=== PATIENT | male | born 1955 ===

== ENCOUNTER 2016-12-28 09:53 | Emergency (ER) | payer BC ==
[2016-12-28 10:01] VITALS: BP 163/86
--- NOTE | 2016-12-28 10:38 | EDM.PDOC ---
ED HPI GENERAL MEDICAL PROBLEM - General Chief Complaint: Cardiovascular Problem Stated Complaint: SYNCOPE Time Seen by Provider: 12/28/16 10:28 Source of Information: Reports: Patient History Limitations: Reports: No Limitations - History of Present Illness INITIAL COMMENTS - FREE TEXT/NARRATIVE: 61-year-old male presents to the ED in the accompaniment of his . He states that since he awoke this morning he spelled like he's going to pass out. Feels like he's going to collapse. Not aware of any palpitations or pain in his chest. He gives a very vague symptoms to suggest very mild vertigo. He's better when he's laying down and at rest and not moving. He did not drive the car today because of the way he felt. His did not have to help him walk he did not feel that he lost his balance was offkilter. Takes no medications and has been taking no supplements or diet Kennedy products. No reason to be volume depleted with no history of diarrhea vomiting recently. Denies having a headache. He did have nausea for a short period of time but never did vomit. His only had a couple coffee so far this morning. Onset: Today Onset Date: 12/28/16 Onset Time: 06:30 Duration: Hour(s): Location: Reports: Generalized (Feeling of near-syncope or like he is going to pass out.) Quality: Reports: Same as Previous Episode (Perhaps a very mild similar episode occurred earlier this summer on his way to the [facility] while driving a motor vehicle but it lasted for a very short duration. At that time it was more swimming vision with a feeling of being off balance but it cleared spontaneously.) Severity: Moderate Improves with: Reports: Rest (And not moving.) Worsens with: Reports: Movement Context: Denies: Activity, Exercise (Particularly standing up.), Lifting, Sick Contact, Trauma, Other Associated Symptoms: Reports: No Other Symptoms, Nausea/Vomiting. 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: Other (see below) Other Treatments MEDIA MARKETING SPECIALIST: advil - Related Data Allergies Allergy/AdvReac Type Severity Reaction Status Date / Time No Known Allergies Allergy Verified 09/14/17 09:58 Home Meds: Home Meds Aspirin [Ecotrin] 975 mg PO ONCALL PRN 07/29/14 [History] Ciprofloxacin HCl [Cipro] 500 mg PO BID #14 tablet 07/30/14 [Rx] Meclizine [Antivert] 25 mg PO Q8H #15 tablet 12/28/16 [Rx] Past Medical History HEENT History: Reports: Retinal Detachment Other HEENT History: bilateral eye retinal detachment Social & Family History - Tobacco Use Smoking Status *Q: Never Smoker - Caffeine Use Caffeine Use: Reports: Coffee, Tea - Alcohol Use Days Per Week of Alcohol Use: 0 - Recreational Drug Use Recreational Drug Use: No - Living Situation & Occupation Living situation: Reports: (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 Denies: Fever, Chills, Malaise, Fatigue, Night Sweats, Diaphoresis, Decreased Appetite, Weight Loss, Weight Gain HEENT: Reports: Vertigo. Denies: No Symptoms, Contact Lenses, Dental Pain, Ear Discharge, Ear Pain, Eye Discharge, Eye Pain, Glasses, Hearing Loss, Nosebleed, Nose Pain, Rhinitis, Sinus Problem, Throat Swelling Respiratory: Reports: No Symptoms (Perhaps very minimal.) Cardiovascular: Reports: No Symptoms, Lightheadedness, Other. Denies: Chest Pain, Blood Pressure Problem, Claudication, Dyspnea on Exertion, Edema (A day recurrently he feels like he might pass out.), Orthopnea, Palpitations Endocrine: Reports: No Symptoms GI/Abdominal: Reports: No Symptoms, Nausea (Transient nausea with no vomiting once today.) : Reports: Frequency, Other (Nocturia 2) Musculoskeletal: Reports: No Symptoms Skin: Reports: No Symptoms Neurological: Reports: Dizziness, Syncope. Denies: Headache, Numbness, Paresthesia, Pre-Existing Deficit, Seizure, Tingling, Tremors, Trouble Speaking , Difficulty Walking, Gait Disturbance, Other Psychiatric: Reports: Anxiety Hematologic/Lymphatic: Reports: No Symptoms Immunologic: Reports: No Symptoms ED EXAM, GENERAL - Physical Exam Exam: See Below Exam Limited By: No Limitations General Appearance: Alert, WD/WN, No Apparent Distress Eye Exam: Right Eye: PERRL (No nystagmus. Visual valles are normal as compared to mind.), Bilateral Eye: Normal Inspection, Nystagmus Ears: Other (Both ears are plugged with cerumen. Unable to visualize the tympanic membranes bilaterally.) Throat/Mouth: Normal Inspection, Normal Lips, Normal Oropharynx, Other Head: Atraumatic, Normocephalic Neck: Normal Inspection (Uvula is in the midline), Supple, Non-Tender, Full Range of Motion. No: Carotid Bruit, Lymphadenopathy (L), Lymphadenopathy (R) Respiratory/Chest: No Respiratory Distress, Lungs Clear, Normal Breath Sounds, No Accessory Muscle Use, Chest Non-Tender Cardiovascular: Normal Peripheral Pulses, Regular Rate, Rhythm, No Edema, No Gallop, No Murmur, No Rub Peripheral Pulses: 2+: Posterior Tibial (L), Posterior Tibial (R), Dorsalis Pedis (L), Dorsalis Pedis (R) GI/Abdominal: Normal Bowel Sounds, Soft, Non-Tender, No Organomegaly, No Distention, No Abnormal Bruit, No Mass Back Exam: Normal Inspection, Full Range of Motion. No: CVA Tenderness (L), CVA Tenderness (R) Extremities: Normal Inspection, Normal Range of Motion, Non-Tender, No Pedal Edema Neurological: Alert, Oriented, CN II-XII Intact, Normal Cognition, Normal Gait, Normal Reflexes, No Motor/Sensory Deficits Psychiatric: Normal Affect, Normal Mood Skin Exam: Warm, Dry, Intact, Normal Color, No Rash EKG INTERPRETATION EKG Date: 12/28/16 Time: 10:45 Rhythm: NSR Rate (Beats/Min): 62 [place]: RAD-Right [place] Deviation (Borderline right axis deviation.) P-Wave: Present QRS: Normal ST-T: Normal QT: Prolonged (QT is prolonged at 460.) Course - Vital Signs Last Recorded V/S: Last Vital Signs Temp 35.8 C 12/28/16 09:58 Pulse 68 12/28/16 09:58 Resp 18 12/28/16 09:58 BP 163/86 H 12/28/16 09:58 Pulse Ox 99 12/28/16 09:58 Orthostatic Blood Pressure [ 141/97 Standing] Orthostatic Blood Pressure [ 157/93 Sitting] Orthostatic Blood Pressure [ 149/85 Supine] - Orders/Labs/Meds Orders: Active Orders 24 hr Category Date Time Status EKG Documentation Completion [RC] STAT Care 12/28/16 10:38 Active Ear Irrigation [RC] ASDIRECTED Care 12/28/16 10:40 Active Orthostatic Vital Signs [RC] ASDIRECTED Care 12/28/16 10:38 Active Peripheral IV Care [RC] . DIRECTED Care 12/28/16 10:40 Active Sodium Chloride 0.9% [Normal Saline] 1,000 ml Med 12/28/16 11:00 Active IV ASDIRECTED Sodium Chloride 0.9% [Saline Flush] Med 12/28/16 10:40 Active 10 ml FLUSH ASDIRECTED PRN Peripheral IV Insertion Adult [OM.PC] Stat Oth 12/28/16 10:40 Ordered Medication Orders Sodium Chloride (Normal Saline) 1,000 mls @ 250 mls/hr IV ASDIRECTED JHOANA Last Admin: 12/28/16 10:55 Dose: 250 mls/hr Sodium Chloride (Saline Flush) 10 ml FLUSH ASDIRECTED PRN PRN Reason: Keep Vein Open Last Admin: 12/28/16 10:59 Dose: 10 ml Labs: Laboratory Tests 12/28/16 12/28/16 12/28/16 Range/Units 10:50 10:50 10:50 WBC 6.19 (4.23-9.07) K/mm3 RBC 5.24 (4.63-6.08) M/mm3 Hgb 16.0 (13.7-17.5) gm/L Hct 45.9 (40.1-51.0) % MCV 87.6 (79.0-92.2) fl MCH 30.5 (25.7-32.2) pg MCHC 34.9 (32.2-35.5) g/dl RDW Std Deviation 43.9 (35.1-43.9) fL Plt Count 269 (163-337) K/mm3 MPV 9.3 L (9.4-12.3) fl Neutrophils % (Manual) 69 H (40-60) % Band Neutrophils % 0 (0-10) % Lymphocytes % (Manual) 20 (20-40) % Atypical Lymphs % 0 % Monocytes % (Manual) 3 (2-10) % Eosinophils % (Manual) 7 (0.8-7.0) % Basophils % (Manual) 1 (0.2-1.2) Platelet Estimate Adequate RBC Morph Comment Normal D-Dimer, Quantitative < 0.19 L (0.19-0.59) mg/L Sodium 142 (136-145) mEq/L Potassium 4.3 (3.5-5.1) mEq/L Chloride 108 H (98-107) mEq/L Carbon Dioxide 28 (21-32) mEq/L Anion Gap 10.3 (5-15) BUN 21 H (7-18) mg/dL Creatinine 1.1 (0.7-1.3) mg/dL Est Cr Clr Drug Dosing 70.97 mL/min Estimated GFR (MDRD) > 60 (>60) mL/min BUN/Creatinine Ratio 19.1 H (14-18) Glucose 119 H (80-115) mg/dL Calcium 9.0 (8.5-10.1) mg/dL Magnesium 1.9 (1.8-2.4) mg/dl Total Bilirubin 0.6 (0.2-1.0) mg/dL AST 19 (15-37) U/L ALT 36 (16-63) U/L Alkaline Phosphatase 46 (46-116) U/L Creatine Kinase 81 (39-308) U/L CK-MB (CK-2) 1.2 (0-3.6) ng/ml Troponin I < 0.017 (0.00-0.056) ng/mL C-Reactive Protein 0.3 (<1.0) mg/dL Total Protein 6.9 (6.4-8.2) g/dl Albumin 4.0 (3.4-5.0) g/dl Globulin 2.9 gm/dL Albumin/Globulin Ratio 1.4 (1-2) TSH 3rd Generation 1.086 (0.358-3.74) uIU/mL Urine Color (Yellow) Urine Appearance (Clear) Urine pH (5.0-8.0) Ur Specific [place] (1.005-1.030) Urine Protein (Negative) Urine Glucose (UA) (Negative) Urine Ketones (Negative) Urine Occult Blood (Negative) Urine Nitrite (Negative) Urine Bilirubin (Negative) Urine Urobilinogen (0.2-1.0) Ur Leukocyte Esterase (Negative) Urine RBC (0-5) /hpf Urine WBC (0-5) /hpf Ur Epithelial Cells (0-5) /hpf Urine Bacteria (FEW) /hpf Urine Mucus (FEW) /hpf 12/28/16 Range/Units 11:50 WBC (4.23-9.07) K/mm3 RBC (4.63-6.08) M/mm3 Hgb (13.7-17.5) gm/L Hct (40.1-51.0) % MCV (79.0-92.2) fl MCH (25.7-32.2) pg MCHC (32.2-35.5) g/dl RDW Std Deviation (35.1-43.9) fL Plt Count (163-337) K/mm3 MPV (9.4-12.3) fl Neutrophils % (Manual) (40-60) % Band Neutrophils % (0-10) % Lymphocytes % (Manual) (20-40) % Atypical Lymphs % % Monocytes % (Manual) (2-10) % Eosinophils % (Manual) (0.8-7.0) % Basophils % (Manual) (0.2-1.2) Platelet Estimate RBC Morph Comment D-Dimer, Quantitative (0.19-0.59) mg/L Sodium (136-145) mEq/L Potassium (3.5-5.1) mEq/L Chloride (98-107) mEq/L Carbon Dioxide (21-32) mEq/L Anion Gap (5-15) BUN (7-18) mg/dL Creatinine (0.7-1.3) mg/dL Est Cr Clr Drug Dosing mL/min Estimated GFR (MDRD) (>60) mL/min BUN/Creatinine Ratio (14-18) Glucose (80-115) mg/dL Calcium (8.5-10.1) mg/dL Magnesium (1.8-2.4) mg/dl Total Bilirubin (0.2-1.0) mg/dL AST (15-37) U/L ALT (16-63) U/L Alkaline Phosphatase (46-116) U/L Creatine Kinase (39-308) U/L CK-MB (CK-2) (0-3.6) ng/ml Troponin I (0.00-0.056) ng/mL C-Reactive Protein (<1.0) mg/dL Total Protein (6.4-8.2) g/dl Albumin (3.4-5.0) g/dl Globulin gm/dL Albumin/Globulin Ratio (1-2) TSH 3rd Generation (0.358-3.74) uIU/mL Urine Color Yellow (Yellow) Urine Appearance Clear (Clear) Urine pH 7.0 (5.0-8.0) Ur Specific [place] 1.015 (1.005-1.030) Urine Protein Negative (Negative) Urine Glucose (UA) Negative (Negative) Urine Ketones Negative (Negative) Urine Occult Blood Trace-intact H (Negative) Urine Nitrite Negative (Negative) Urine Bilirubin Negative (Negative) Urine Urobilinogen 1.0 (0.2-1.0) Ur Leukocyte Esterase Negative (Negative) Urine RBC 0-5 (0-5) /hpf Urine WBC 0-5 (0-5) /hpf Ur Epithelial Cells Not seen (0-5) /hpf Urine Bacteria Not seen (FEW) /hpf Urine Mucus Not seen (FEW) /hpf Meds: Medications Generic Name Dose Route Start Last Admin Trade Name Freq PRN Reason Stop Dose Admin Sodium Chloride 1,000 mls @ 250 mls/hr 12/28/16 11:00 12/28/16 10:55 Normal Saline IV 250 mls/hr ASDIRECTED JHOANA Administration Sodium Chloride 10 ml 12/28/16 10:40 12/28/16 10:59 Saline Flush FLUSH 10 ml ASDIRECTED PRN Administration Keep Vein Open - Radiology Interpretation Free Text/Narrative:: 61-year-old male presents to the ED with nonspecific complaints of a feeling like he is going to pass out I dimmed vision and feels like he's going to collapse. He has not done so. He did feel good enough to eat much for breakfast and only cup of coffee. Symptoms started when he awoke this morning. He will not really give me a history of true vertigo or being off balance or offkilter. Transient nausea once today. Never did vomit. He said no diarrhea he's had no stools were black or tarry. No dyspepsia. He takes no medications. Examination including neuro exam is completely normal. His ears are plugged with cerumen bilaterally and he may well have been very vague vertiginous syndrome to cause his current complaints. He has no nystagmus however. Plan orthostatic BPs ECG to be done in routine labs. Will IV will be normal saline at 250 mils per hour since he has not yet eaten today. He has no history of being diabetic. Takes no medications and has no allergies. - Re-Assessments/Exams Free Text/Narrative Re-Assessment/Exam: 12/28/16 11:16 ECG reveals sinus rhythm at 62/m with no abnormalities noted. Orthostatic BPs reveal lying it's 149/85 with heart rate of 54 sitting 157/93 with a heart rate of 58 and standing is 141/97 with a heart rate of 60 and feeling dizzy to stand. This strongly suggests a vertiginous component to his disease process. He has not had his ears irrigated yet. Therefore not going to give him any medication until after irrigation and will stand him up again see if he still is offkilter vertiginous. 12/28/16 12:32 labs have returned and are completely normal. Total white count 6.19 with 69% neutrophils and no bands. Hemoglobin 16.0with hematocrit of 45.9.. Platelets 269,000. D-dimer is normal at less than 0.19. Chemistry shows a sodium of 142 potassium 4.3. Chloride 108. BUNs 21 creatinine 1.1. Glucose 119 TSH normal 1.086. This going to have a serious lavage and then reassess his ability to stand. Otherwise I believe he has mild vertigo symptoms at this time and would be treated with Anti vert 25 mg Q 8hrs prn. Departure - Departure Time of Disposition: 12:41 Disposition: Home, Self-Care 01 Condition: Fair Clinical Impression: Benign paroxysmal positional vertigo Qualifiers: Laterality: unspecified laterality Qualified Code(s): H81.10 - Benign paroxysmal vertigo, unspecified ear Prescriptions: Meclizine [Antivert] 25 mg PO Q8H #15 tablet Referrals: PCP,None [Primary Care Provider] - Forms: ED Department Discharge Additional Instructions: Complete evaluation carried out in the emergency room today due to feeling of nearly going to pass out when you stand up since getting up this morning. Blood pressure remains completely stable when you stand and there is no evidence that your volume depleted and heart is behaving completely normally. Complete heart checkup carried out today revealed no abnormalities or heart related illness. It appears that you are experiencing mild vertigo which is problem with the balance mechanism in your middle ear cavities. I can't tell which one is misbehaving or not not functioning completely normally. Both ears were impacted with cerumen and they were washed away partially with irrigation but still some cerumen attached to the eardrums bilaterally which may or may not be contributing to this feeling of being off balance or offkilter. Suggest olive oil 2-3 drops into each ear at bedtime for the next 3 nights which will help relax come out on its own. Of note all of the other blood tests done in the emergency room including thyroid function are completely within normal limits. You're given 1 tablet of meclizine 25 mg in the ED to stabilize balance mechanism. I would suggest purchasing some Antivert which is [id number] medication and comes in 12.5 mg strength. He would use 2 tablets every 8 hours for up to 5 days if you continue to have symptoms. However a lot of times once her ears are cleansed you have no further symptoms and do not need to take the medicine for the full 5 days. Of course staying on ground-level not climbing caught to any heights where you would risk of fall looking down a steep stairwell or a well should be avoided until balance mechanism has returned to normal. If not completely back to normal in 7 days time then you should be reviewed by her personal physician. - My Orders Last 24 Hours: My Active Orders 12/28/16 10:38 EKG Documentation Completion [RC] STAT Orthostatic Vital Signs [RC] ASDIRECTED 12/28/16 10:40 Ear Irrigation [RC] ASDIRECTED Peripheral IV Care [RC] . DIRECTED Sodium Chloride 0.9% [Saline Flush] 10 ml FLUSH ASDIRECTED PRN Peripheral IV Insertion Adult [OM.PC] Stat 12/28/16 11:00 Sodium Chloride 0.9% [Normal Saline] 1,000 ml IV ASDIRECTED - Assessment/Plan Last 24 Hours: My Active Orders 12/28/16 10:38 EKG Documentation Completion [RC] STAT Orthostatic Vital Signs [RC] ASDIRECTED 12/28/16 10:40 Ear Irrigation [RC] ASDIRECTED Peripheral IV Care [RC] . DIRECTED Sodium Chloride 0.9% [Saline Flush] 10 ml FLUSH ASDIRECTED PRN Peripheral IV Insertion Adult [OM.PC] Stat 12/28/16 11:00 Sodium Chloride 0.9% [Normal Saline] 1,000 ml IV ASDIRECTED
[2016-12-28] MEDS ORDERED: Sodium Chloride 0.9% 10 ML Syringe FLUSH PRN (10:40)
[2016-12-28] MEDS ORDERED: Sodium Chloride 0.9% 1,000 ML IV SCH (11:00)
[2016-12-28] MEDS ORDERED: Meclizine 12.5 MG Tab PO ONE (12:40)
== END 2016-12-28 13:05 | disposition home or self-care (01) ==
LOC: JD.ED 09:53
DX: H81.10 Benign paroxysmal vertigo, unspecified ear (principal); Z79.82 Long term (current) use of aspirin
CPT/HCPCS: 36415; 69210; 80053; 81001; 82550; 82553; 83735; 84443; 84484; 85025; 85379; 86140; 93005; 96360; 96361; 99284; A9270; J7040; J7050; 69209